=== PATIENT | female | born 1965 | race Caucasian/White ===

== ENCOUNTER 2018-01-09 08:40 | Outpatient (CLI) | payer OTHER ==
[2018-01-09 11:15] LABS: BASOPHILS # (AUTO) 0.1 10^3/uL (0.0-0.1); BASOPHILS % (AUTO) 1.2 %; EOSINOPHILS # (AUTO) 0.2 10^3/uL (0.0-0.7); EOSINOPHILS % (AUTO) 3.1 %; HGB - HEMOGLOBIN 9.8 g/dL (12.0-16.0); LYMPHOCYTES # (AUTO) 1.8 10^3/uL (1.5-3.5); MEAN CORPUSCULAR HEMOGLOBIN 19.3 pg (27.0-31.0); MEAN CORPUSCULAR HGB CONC 28.8 g/dL (32.0-36.0); MEAN CORPUSCULAR VOLUME 66.8 fL (81.0-99.0); MEAN PLATELET VOLUME 8.8 fL (7.9-10.8); MONOCYTES # (AUTO) 0.4 10^3/uL (0.0-1.0); MONOCYTES % (AUTO) 6.4 %; NEUTROPHILS # (AUTO) 3.9 10^3/uL (1.5-6.6); NEUTROPHILS % (AUTO) 61.3 %; PLT - PLATELET COUNT 406 10^3/uL (130-450); RED BLOOD COUNT 5.09 10^6/uL (4.20-5.40); WHITE BLOOD COUNT 6.4 x10^3/uL (4.8-10.8)
== END 2018-01-09 08:41 | disposition home or self-care (01) ==
LOC: LAB.F 08:40
PROVIDERS: ATTEND Nurse Practitioner Family
DX: R53.83 Other fatigue (principal); Z13.220 Encounter for screening for lipoid disorders
CPT/HCPCS: 36415; 80053; 80061; 83721; 84443; 85025

== ENCOUNTER 2018-01-17 09:42 | Outpatient (CLI) | payer OTHER ==
[2018-01-17 17:59] LABS: % IRON SATURATION 6 % (20-50); IRON 28 ug/dL (28-170); TOTAL IRON BINDING CAPACITY 482 ug/dL (250-450); TRANSFERRIN 344 mg/dL (192-382)
== END 2018-01-17 09:43 | disposition home or self-care (01) ==
LOC: LAB.F 09:42
PROVIDERS: ATTEND Nurse Practitioner Family
DX: R71.8 Other abnormality of red blood cells (principal)
CPT/HCPCS: 36415; 82728; 83540; 84466

== ENCOUNTER 2018-03-15 08:10 | Outpatient (CLI) | payer OTHER ==
[2018-03-15 11:27] LABS: % IRON SATURATION 12 % (20-50); IRON 48 ug/dL (28-170); TOTAL IRON BINDING CAPACITY 400 ug/dL (250-450); TRANSFERRIN 286 mg/dL (192-382)
[2018-03-15 11:28] LABS: BASOPHILS % (AUTO) 0.4 %; EOSINOPHILS # (AUTO) 0.1 10^3/uL (0.0-0.7); EOSINOPHILS % (AUTO) 1.8 %; HGB - HEMOGLOBIN 12.6 g/dL (12.0-16.0); LYMPHOCYTES # (AUTO) 1.7 10^3/uL (1.5-3.5); LYMPHOCYTES % (AUTO) 26.6 %; MEAN CORPUSCULAR HEMOGLOBIN 25.7 pg (27.0-31.0); MEAN CORPUSCULAR HGB CONC 32.3 g/dL (32.0-36.0); MEAN CORPUSCULAR VOLUME 79.3 fL (81.0-99.0); MEAN PLATELET VOLUME 9.5 fL (7.9-10.8); MONOCYTES # (AUTO) 0.5 10^3/uL (0.0-1.0); NEUTROPHILS # (AUTO) 4.2 10^3/uL (1.5-6.6); NEUTROPHILS % (AUTO) 64.2 %; PLT - PLATELET COUNT 246 10^3/uL (130-450); RED BLOOD COUNT 4.92 10^6/uL (4.20-5.40); RED CELL DISTRIBUTION WIDTH 28.8 % (12.0-15.0); WHITE BLOOD COUNT 6.5 x10^3/uL (4.8-10.8)
[2018-03-15 11:48] LABS: RBC MORPHOLOGY (MULTIPLE) 3+ ANISOCYTOSIS (NORMAL)
== END 2018-03-15 08:11 | disposition home or self-care (01) ==
LOC: LAB.F 08:10
PROVIDERS: ATTEND Nurse Practitioner Family
DX: D50.9 Iron deficiency anemia, unspecified (principal)
CPT/HCPCS: 36415; 82728; 83540; 84466; 85025